=== PATIENT | female | born 1945 | race Caucasian/White ===

== ENCOUNTER → 2023-06-28 11:23 | Outpatient (CLI) | payer MEDICARE, SELFPAY ==
[2023-06-28 12:09] LABS: Basophils # 0.1 K/mm3 (0-0.2); Basophils % 1.1 % (0.1-2.0); Eosinophils # 0.3 K/mm3 (0.0-0.4); Eosinophils % 3.6 % (0.1-12.0); Hematocrit 43.1 % (37.0-47.0); Lymphocytes # 2.4 K/mm3 (0.7-4.5); Mean Corpuscular HGB Conc 32.5 g/dL (31.8-35.4); Mean Corpuscular Hemoglobin 27.7 pg (27.0-31.2); Mean Corpuscular Volume 85.4 fl (81-99); Monocytes # 0.3 K/mm3 (0.1-1.0); Neutrophils % 61.2 % (37.0-80.0); Platelet Count 260 K/mm3 (142-424); Red Blood Count 5.05 M/mm3 (4.20-5.40); Red Cell Distribution Width 15.4 % (11.5-17.5); White Blood Count 8.1 K/mm3 (4.8-10.8)
[2023-06-28 13:56] LABS: Chloride 103 mmol/L (98-107); Potassium 4.1 mmoL/L (3.5-5.1); Sodium 139 mmol/L (136-145)
[2023-06-28 13:58] LABS: Blood Urea Nitrogen 24 mg/dl (7-17); Estimated Glomerular Filt Rate 54 ml/min (>60); GFR (African American) 65 ML/MIN (>60)
[2023-06-28 13:59] LABS: Alanine Aminotransferase 25 U/L (12-78); Albumin Level 4.2 g/dl (3.5-5.0); Alkaline Phosphatase 59 U/L (38-126); Anion Gap 14.1 mEq/L (5-15); Aspartate Amino Transferase 28 U/L (14-36); Bilirubin,Direct 0.3 mg/dl (0.0-0.4); Bilirubin,Total 0.3 mg/dl (0.2-1.3); Calcium 10.7 mg/dl (8.4-10.2); Carbon Dioxide 26 mmol/L (22.0-30.0); Cholesterol 272 mg/dl (140-200); Glucose 133 mg/dl (74-100); Total Protein,Serum 7.2 g/dl (6.3-8.2); Triglycerides 302 mg/dl (30-150); VLDL Cholesterol 60 mg/dL (0-40)
[2023-06-28 14:00] LABS: Chol/HDL Ratio 6.2 (1-3.5); HDL Cholesterol 44 mg/dl (40-60)
[2023-06-28 14:11] LABS: Direct LDL Cholesterol 151.07 mg/dL (100-129)
[2023-06-28 14:28] LABS: Thyroid Stimulating Hormone 6.46 uIU/mL (0.465-4.68)
== END ==
PROVIDERS: PCP Family Medicine; Visit Provider Internal Medicine
DX: E11.9 Type 2 diabetes mellitus without complications (principal); R06.00 Dyspnea, unspecified; E78.5 Hyperlipidemia, unspecified; I10 Essential (primary) hypertension; I25.810 Atherosclerosis of coronary artery bypass graft(s) without angina pectoris; I45.10 Unspecified right bundle-branch block; R94.31 Abnormal electrocardiogram [ECG] [EKG]; I63.9 Cerebral infarction, unspecified; I11.9 Hypertensive heart disease without heart failure; Z79.84 Long term (current) use of oral hypoglycemic drugs
CPT/HCPCS: 36415; 80048; 80061; 80076; 84439; 84443; 85025

== ENCOUNTER → 2023-08-16 08:34 | Outpatient (CLI) | payer MEDICARE, SELFPAY ==
--- NOTE | 2023-08-16 08:39 | CA_ITS ---
FINAL REPORT TECHNIQUE: Grayscale, color Doppler and duplex Doppler ultrasound of the kidneys, aorta and renal arteries was performed. Multiple velocities were measured. CLINICAL HISTORY: HTN,DM COMPARISON: None FINDINGS: Aorta velocity: 116 cm/sec Right kidney: 9.3 cm. No evidence of hydronephrosis or mass. Right intrarenal RI: 0.77 Right renal artery velocity: 229 cm/sec. Right RAR (Renal artery-Aortic Ratio): 1.97 Left Kidney: 10.1 cm. No evidence of hydronephrosis or mass. Left intrarenal RI: 0.8 Left renal artery velocity: 232 cm/sec. Left RAR (Renal Artery-Aortic Ratio): 1.99 0.8 x 1.1 cm hypoechoic focus in the upper pole of the left kidney compatible with a renal cyst. IMPRESSION: No evidence of significant renal artery stenosis. Velocities are increased bilaterally, however the renal artery to aorta ratios are normal bilaterally. CT angiogram or postcontrast MR angiogram would be more sensitive for evaluation of possible renal artery stenosis. Reviewed, Interpreted and Dictated by Donta Garduno III, MD Transcribed by Yuridia Rincon Authenticated and [facility]
--- NOTE | 2023-08-16 09:20 | US_ITS ---
FINAL REPORT TECHNIQUE: Ultrasound images of the kidneys and bladder were obtained. CLINICAL HISTORY: I10 - Essential (primary) hypertension COMPARISON: None FINDINGS: The right kidney measures 9.8 cm in length. It is normal in echogenicity. There is no hydronephrosis. The left kidney measures 9.2 cm in length. It is normal in echogenicity. There is no hydronephrosis. There are 2 small hypoechoic foci in the left kidney, one of which measures 9 mm, the other measures 6 mm in size. These are felt to be compatible with renal cysts. IMPRESSION: 2 small left renal cysts as described. Otherwise unremarkable renal ultrasound. Reviewed, Interpreted and Dictated by Donta Garduno III, MD Transcribed by Yuridia Rincon Authenticated and [facility]
== END ==
LOC: RT 08:35
PROVIDERS: PCP Family Medicine; Visit Provider Nurse Practitioner
DX: I25.810 Atherosclerosis of coronary artery bypass graft(s) without angina pectoris; I45.10 Unspecified right bundle-branch block; R06.83 Snoring; R94.31 Abnormal electrocardiogram [ECG] [EKG]; E78.5 Hyperlipidemia, unspecified; I10 Essential (primary) hypertension
CPT/HCPCS: 76770; 93976

== ENCOUNTER → 2023-09-08 10:06 | Outpatient (CLI) | payer MEDICARE, SELFPAY ==
--- NOTE | 2023-09-08 10:06 | CT_ITS ---
FINAL REPORT TECHNIQUE: Pre-and postcontrast images of the abdomen were performed by computed tomography. Extensive 3-D reconstruction images were performed. A CTA was performed. This study was performed with techniques to keep radiation doses as low as reasonably achievable (ALARA). Individualized dose reduction techniques using automated exposure control or adjustment of mA and/or kV according to the patient''s size were employed. CLINICAL HISTORY: abnl renal u/s FINDINGS: ABDOMEN: The lung bases are clear. Precontrast images demonstrate no evidence of nephrolithiasis. No adrenal masses are identified. The liver, spleen and pancreas are unremarkable. Gallbladder is absent. There is a moderate size hiatal hernia. CTA: The abdominal aorta is proper caliber. The SMA, celiac axis, and JM are patent. There is high-grade, bilateral renal artery stenosis at the origins measuring 80-90%. Dense vascular calcification is noted in the abdominal aorta. IMPRESSION: Dense vascular calcification in the proximal renal arteries bilaterally with high-grade stenosis at the renal artery origins. CTA can overestimate degree of stenosis. Recommend catheter directed angiogram for further evaluation. Reviewed, Interpreted and Dictated by Mario Guthrie MD Transcribed by Heavenly Santoro Authenticated and . [facility]
[2023-09-08 10:42] LABS: Blood Urea Nitrogen 33 mg/dl (7-17); Estimated Glomerular Filt Rate 43 ml/min (>60); GFR (African American) 52 ML/MIN (>60)
== END ==
LOC: RAD 10:06
PROVIDERS: PCP Family Medicine; Visit Provider Internal Medicine
DX: R93.429 Abnormal radiologic findings on diagnostic imaging of unspecified kidney (principal)
CPT/HCPCS: 36415; 74175; 82565; 84520; Q9967

== ENCOUNTER → 2023-09-21 10:01 | Outpatient (CLI) | payer MEDICARE, SELFPAY ==
[2023-09-21 10:49] LABS: Chloride 105 mmol/L (98-107); Sodium 139 mmol/L (136-145)
[2023-09-21 10:50] LABS: Potassium 4.9 mmoL/L (3.5-5.1)
[2023-09-21 10:52] LABS: Blood Urea Nitrogen 39 mg/dl (7-17)
[2023-09-21 10:53] LABS: Anion Gap 18.9 mEq/L (5-15); Carbon Dioxide 20 mmol/L (22.0-30.0); Estimated Glomerular Filt Rate 40 ml/min (>60); GFR (African American) 48 ML/MIN (>60); Glucose 128 mg/dl (74-100)
== END ==
LOC: LAB 10:03
PROVIDERS: PCP Family Medicine; Visit Provider Physician Assistant
DX: E78.5 Hyperlipidemia, unspecified (principal); I11.9 Hypertensive heart disease without heart failure; I25.10 Atherosclerotic heart disease of native coronary artery without angina pectoris; I25.810 Atherosclerosis of coronary artery bypass graft(s) without angina pectoris
CPT/HCPCS: 36415; 80048

== ENCOUNTER 2023-10-23 11:11 | Outpatient (CLI) | payer MEDICARE, SELFPAY ==
[2023-10-23 11:37] LABS: Basophils # 0.1 K/mm3 (0-0.2); Basophils % 1.3 % (0.1-2.0); Eosinophils # 0.5 K/mm3 (0.0-0.4); Eosinophils % 6.4 % (0.1-12.0); Hematocrit 41.5 % (37.0-47.0); Hemoglobin 13.9 g/dL (12.2-16.2); Lymphocytes # 2.4 K/mm3 (0.7-4.5); Lymphocytes % 30.6 % (10-50); Mean Corpuscular HGB Conc 33.4 g/dL (31.8-35.4); Mean Corpuscular Hemoglobin 29.7 pg (27.0-31.2); Mean Corpuscular Volume 88.9 fl (81-99); Mean Platelet Volume 9.6 fl (7.4-10.4); Monocytes # 0.3 K/mm3 (0.1-1.0); Neutrophils # 4.5 K/mm3 (1.8-7.8); Neutrophils % 57.8 % (37.0-80.0); Platelet Count 230 K/mm3 (142-424); Red Blood Count 4.67 M/mm3 (4.20-5.40); Red Cell Distribution Width 16.3 % (11.5-17.5); White Blood Count 7.7 K/mm3 (4.8-10.8)
[2023-10-23 12:04] LABS: Alanine Aminotransferase 23 U/L (12-78); Albumin Level 4.5 g/dl (3.5-5.0); Alkaline Phosphatase 49 U/L (38-126); Anion Gap 16.7 mEq/L (5-15); Aspartate Amino Transferase 26 U/L (14-36); Bilirubin,Direct 0.3 mg/dl (0.0-0.4); Bilirubin,Total 0.3 mg/dl (0.2-1.3); Blood Urea Nitrogen 29 mg/dl (7-17); Calcium 10.9 mg/dl (8.4-10.2); Carbon Dioxide 20 mmol/L (22.0-30.0); Chloride 106 mmol/L (98-107); Chol/HDL Ratio 5.9 (1-3.5); Cholesterol 266 mg/dl (140-200); Estimated Glomerular Filt Rate 43 ml/min (>60); GFR (African American) 52 ML/MIN (>60); Glucose 100 mg/dl (74-100); HDL Cholesterol 45 mg/dl (40-60); Magnesium 1.6 mg/dl (1.6-2.3); Potassium 4.7 mmoL/L (3.5-5.1); Sodium 138 mmol/L (136-145); Triglycerides 260 mg/dl (30-150); VLDL Cholesterol 52 mg/dL (0-40)
[2023-10-23 12:15] LABS: Direct LDL Cholesterol 151.45 mg/dL (100-129)
[2023-10-23 12:19] LABS: Free T4 (Free Thyroxine) 1.04 ng/dl (0.78-2.19)
== END 2023-10-23 23:59 ==
LOC: LAB 11:12
PROVIDERS: PCP Family Medicine; Visit Provider Physician Assistant
DX: E78.5 Hyperlipidemia, unspecified (principal); I10 Essential (primary) hypertension; I25.810 Atherosclerosis of coronary artery bypass graft(s) without angina pectoris; I45.10 Unspecified right bundle-branch block; I70.1 Atherosclerosis of renal artery; R94.31 Abnormal electrocardiogram [ECG] [EKG]; Z79.899 Other long term (current) drug therapy
CPT/HCPCS: 36415; 80048; 80061; 80076; 83735; 84439; 84443; 85025

== ENCOUNTER 2024-01-23 09:40 | Emergency (ER) | payer MEDICARE, SELFPAY ==
[2024-01-23] VITALS (8 sets, daily range): BP systolic 112–197; BP diastolic 50–90; PULSE 44–53; RESP 16–17; TEMP 36.5–37; O2SAT 93–98; BMI 26.5
--- NOTE | 2024-01-23 10:00 | PC.NURSE ---
DR MCCARTY AT BEDSIDE
--- NOTE | 2024-01-23 10:02 | XR_ITS ---
FINAL REPORT CLINICAL HISTORY: L low back simpson rad down L leg/L hip FINDINGS: Left femur Two views were obtained. There is no acute fracture or dislocation. The joint spaces appear normal. No soft tissue abnormality is identified. IMPRESSION: No acute process. Reviewed, Interpreted and Dictated by Kasie Nava MD Transcribed by Huyen Gresham Authenticated and [facility]
--- NOTE | 2024-01-23 10:02 | CT_ITS ---
FINAL REPORT TECHNIQUE: Axial images through the pelvis were performed by computed tomography. Sagittal and coronal reformatted images were obtained and reviewed. This study was performed with techniques to keep radiation doses as low as reasonably achievable (ALARA). Individualized dose reduction techniques using automated exposure control or adjustment of mA and/or kV according to the patient's size were employed. CLINICAL HISTORY: L low back simpson rad down L leg/L hip FINDINGS: The bony pelvis is unremarkable. There are mild degenerative changes of the hips bilaterally. No adenopathy is identified. There is an incidental small nodule in the anterior bladder wall measuring 4 mm. Tiny left inguinal hernia containing fat is identified. IMPRESSION: Unremarkable appearance of the bony pelvis. Incidental nodule of the anterior bladder, cystoscopy may be considered. Reviewed, Interpreted and Dictated by Kasie Nava MD Transcribed by Huyen Gresham Authenticated and [facility]
--- NOTE | 2024-01-23 10:02 | CT_ITS ---
FINAL REPORT CLINICAL HISTORY: back pain rad down L leg, h/o vascular blockages COMPARISON: None FINDINGS: CT ABDOMEN, CT PELVIS, CTA ABDOMEN, CTA PELVIS AND CTA LOWER EXTREMITY RUNOFF Thin section axial CT with IV contrast supplemented with 3D MIP reconstruction under CT Angiogram protocol. CT ANGIOGRAM ABDOMEN AND PELVIS: There is moderate diffuse calcified plaque disease of the aorta. No evidence of aortic stenosis. Moderate bilateral renal artery stenosis, left greater than right. Mesenteric vessels are widely patent. Iliac vessels are widely patent. 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 CTA RIGHT LOWER EXTREMITY: High femoral bifurcation near the inguinal ligament. Continuous femoral-popliteal runoff. No significant stenosis. Mild diffuse plaque disease in the SFA. There is three-vessel runoff of the calf. CTA LEFT LOWER EXTREMITY: High femoral bifurcation near the inguinal ligament. Mild proximal left SFA stenosis up to 40% and distal SFA stenosis of 40 to 50%. Popliteal artery is widely patent. There is three-vessel runoff of the calf. Abdomen: Moderate size hiatal hernia. Mild splenomegaly. Remaining solid abdominal organs are grossly unremarkable. No bowel obstruction is seen. There is no free fluid or free air. Pelvis: Status post hysterectomy. Pelvic bowel loops are unremarkable. No mass or fluid collection is seen. IMPRESSION: No significant aortoiliac inflammatory disease. No significance stenotic lesions right lower extremity runoff. No critical lesions left lower extremity runoff, although there is mild to moderate proximal and distal left SFA stenosis. This study was performed using automated techniques to achieve radiation exposure as low as reasonably achievable Reviewed, Interpreted and Dictated by Kasie Nava MD Transcribed by Bibiana Mckay Authenticated and [facility]
--- NOTE | 2024-01-23 10:02 | XR_ITS ---
FINAL REPORT CLINICAL HISTORY: L low back simpson rad down L leg/L hip FINDINGS: Left hip Three views were obtained. There is no acute fracture or dislocation. The joint spaces appear normal. No soft tissue abnormality is identified. IMPRESSION: No acute process. Reviewed, Interpreted and Dictated by Kasie Nava MD Transcribed by Huyen Gresham Authenticated and [facility]
--- NOTE | 2024-01-23 10:02 | CT_ITS ---
FINAL REPORT TECHNIQUE: Axial images were performed through the lumbar spine by computed tomography. Sagittal reconstruction images were also performed. This study was performed with techniques to keep radiation doses as low as reasonably achievable, (ALARA). Individualized dose reduction techniques using automated exposure control or adjustment of mA and/or kV according to the patient''s size were employed. CLINICAL HISTORY: L low back simpson rad down L leg/L hip FINDINGS: No fracture is identified. There is vacuum disc change with sclerosis at L5-S1. T12-L1: Unremarkable L1-2: Unremarkable L2-3: Mild diffuse disc bulge without canal stenosis. L3-4: Moderate diffuse disc bulge. Mild facet arthropathy and mild central canal stenosis. L4-5: Moderate diffuse disc bulge. Ligamentum flavum hypertrophy with mild central canal stenosis. Mild bilateral neural foraminal narrowing. L5-S1: Bony hypertrophic changes with moderate bilateral neural foraminal narrowing. 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 Reviewed, Interpreted and Dictated by Kasie Nava MD Transcribed by Huyen Gresham Authenticated and [facility]
--- NOTE | 2024-01-23 10:08 | HMH.EDGENADL ---
Discharge Plan Disposition Patient Disposition: Home, Self-Care Condition: Good Prescriptions Prescriptions: New lidocaine [Lidoderm] 5 % adhesive patch,medicated 1 patch topical DAILY Qty: 15 0RF Rx Instructions: leave on most painful area for up to 12 hrs methocarbamol 750 mg tablet 750 mg PO Q8H PRN (Reason: pain) Qty: 20 0RF No Action spironolactone 50 mg tablet 50 mg PO DAILY Qty: 90 3RF omeprazole 20 mg capsule,delayed release(DR/EC) 20 mg PO DAILY hydrochlorothiazide 25 mg tablet 25 mg PO DAILY levothyroxine 25 mcg capsule 25 mcg PO DAILY lisinopril 40 mg tablet 40 mg PO DAILY allopurinol 300 mg tablet 300 mg PO DAILY omega 1-ivz-nge-fish oil [Fish Oil] 300-1,000 mg capsule 1 cap PO DAILY aspirin [Adult Aspirin Regimen] 81 mg tablet,delayed release (DR/EC) 81 mg PO DAILY ezetimibe 10 mg tablet 10 mg PO DAILY glimepiride 4 mg tablet 4 mg PO DAILY isosorbide mononitrate 30 mg tablet extended release 24 hr 30 mg PO DAILY fenofibrate 54 mg tablet 54 mg PO DAILY clonidine HCl 0.1 mg tablet 0.1 mg PO HS calcium carbonate [Calcium 600] 600 mg calcium (1,500 mg) tablet 600 mg PO DAILY hydralazine 100 mg tablet 100 mg PO TID Qty: 90 5RF montelukast 10 mg tablet 10 mg PO DAILY Patient Comments: TAKE ONE TABLET BY MOUTH DAILY carvedilol 25 mg tablet 25 mg PO Q12H Rx Instructions: must administer with a meal/food rosuvastatin 40 mg tablet See Rx Instructions .ROUTE .COMPLEX Qty: 30 11RF Dose Instruction: TAKE ONE TABLET BY MOUTH DAILY Rx Instructions: TAKE ONE TABLET BY MOUTH DAILY Referrals Follow up/Referrals: John Villarreal [Primary Care Provider] - See instructions Activity Restrictions/Add. Instructions Additional Instructions/Restrictions: You were evaluated in the emergency department today. At this time, I feel that your pain is related to musculoskeletal pain either coming from your back or arthritis of your hip. You do have mild distal stenosis of your left superficial femoral artery, but this is not causing any significant occlusion. 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 Return to the emergency department for new or worsening symptoms. Clinical Impressions Clinical Impression: Low back pain radiating to left leg, Hip osteoarthritis, Stenosis of artery of left lower extremity Instructions Patient Instructions: DI for Low Back Pain, DI for Chronic Pain -- Adult Discharge ED Provider: Eliana Carreon General Adult HPI General Chief complaint: PAIN Stated complaint: pain from hips down, no accident Time Seen by Provider: 01/23/24 09:46 Mode of Arrival: Family Vehicle Source of Information: Patient, Relative and Medical Record Limitations: No Limitations Description of Symptoms (Recalled from ER Triage Doc. by RN): Pt c/o bilat hip pain that radiates through her lower extremeties. Reports pain is much worse on her left. States she has not been able to sleep last night d/t the pain. Pt's sister is concerned pt is having blood flow issues to BLE, as she herself delt with similar symptoms. Pt denies any falls, trauma or injuies. States she has been seen at [facility] ER for this and they told her I has bad arthritis in my hips . Pt's sister is asking for blood flow test to be done here. Pt follows Dr. Mckinney at [facility] for Cardiology needs. She takes low dose aspirin. History of Present Illness HPI narrative: This patient is a 78-year-old female with a history of hypertension, CAD status post CABG, hyperlipidemia, renal artery stenosis, right bundle branch block presenting to the emergency department for evaluation with concern for low back pain associated pain that radiates through her bilateral legs. Her left leg is much greater than her right, and she states that the pain is severe. It goes into her groin on the left side. Her sister notes that she has had noncontrasted scans and x-rays and she has been told that it is her arthritis, but she continues to complain of pain no matter the position she has been or how much she limits movement. Her sister notes that she herself has extensive vascular history and had similar symptoms related to vascular occlusions in her legs. Patient has no numbness, tingling, saddle anesthesia, incontinence, or other concerns. She has had no recent falls. Related Data Home Medications Medication Instructions Recorded Confirmed allopurinol 300 mg tablet 300 mg PO DAILY 06/28/23 01/02/24 aspirin 81 mg tablet,delayed 81 mg PO DAILY 06/28/23 01/02/24 release (Adult Aspirin Regimen) calcium carbonate (Calcium 600) 600 mg PO DAILY 06/28/23 01/02/24 clonidine HCl 0.1 mg tablet 0.1 mg PO HS 06/28/23 01/02/24 ezetimibe 10 mg tablet 10 mg PO DAILY 06/28/23 01/02/24 fenofibrate 54 mg tablet 54 mg PO DAILY 06/28/23 01/02/24 glimepiride 4 mg tablet 4 mg PO DAILY 06/28/23 01/02/24 hydrochlorothiazide 25 mg tablet 25 mg PO DAILY 06/28/23 01/02/24 isosorbide mononitrate 30 mg 30 mg PO DAILY 06/28/23 01/02/24 tablet,extended release 24 hr levothyroxine 25 mcg capsule 25 mcg PO DAILY 06/28/23 01/02/24 lisinopril 40 mg tablet 40 mg PO DAILY 06/28/23 01/02/24 omega 5-zdy-xzp-fish oil 300 1 cap PO DAILY 06/28/23 01/02/24 mg-1,000 mg capsule (Fish Oil) omeprazole 20 mg capsule,delayed 20 mg PO DAILY 06/28/23 01/02/24 release carvedilol 25 mg tablet 25 mg PO Q12H 01/02/24 01/02/24 montelukast 10 mg tablet 10 mg PO DAILY 01/02/24 01/02/24 Previous Rx's Medication Instructions Recorded hydralazine 100 mg tablet 100 mg PO TID #90 tabs 07/26/23 spironolactone 50 mg tablet 50 mg PO DAILY #90 tabs 08/16/23 rosuvastatin 40 mg tablet See Rx Instructions .Route 01/15/24 .COMPLEX #30 tabs lidocaine 5 % topical patch 1 patch topical DAILY #15 ea 01/23/24 (Lidoderm) methocarbamol 750 mg tablet 750 mg PO Q8H PRN pain #20 tabs 01/23/24 Allergies Allergy/AdvReac Type Severity Reaction Status Date / Time amlodipine Allergy Unknown Fainting Verified 01/02/24 10:22 [facility] Disclaimer: The information contained in this section may have been updated after the patient was seen, as this information can be updated by other users. Medical History Abnormal CT of the abdomen Renal artery stenosis Social History Smoking Status: Never smoker alcohol intake: never substance use type: denies use current occupational status: retired Travel in the last 8 weeks: Inside the [place] ROS Obtained: Yes All systems reviewed & no additional complaints except as documented Physical Exam General General appearance: alert and in no apparent distress Head Head exam: atraumatic and normocephalic Eye Eye exam: Present normal appearance, PERRL and EOMI ENT ENT exam: Present normal exam, normal oropharynx, mucous membranes moist and normal external ear exam Neck Neck exam: Present normal inspection, full ROM and trachea midline; Absent tenderness Chest Chest inspection: Present normal inspection and symmetric chest wall rise; Absent tenderness Respiratory Respiratory exam: Present normal lung sounds bilaterally; Absent respiratory distress, wheezes, stridor or accessory muscle use Cardiovascular Cardiovascular exam: Present regular rate, normal rhythm and other (Intact pulses in the bilateral lower extremities) Abdominal Exam Abdominal exam: Present soft; Absent distention, tenderness or guarding Extremities Exam Extremities exam: Present full ROM, tenderness (Tenderness to palpation of the posterior left hip) and normal capillary refill; Absent edema, joint swelling or calf tenderness Back Exam Back exam: Present normal inspection and full ROM; Absent tenderness Neurological Exam Neurological exam: Present alert, oriented X3, CN II-XII intact and normal gait; Absent motor sensory deficit Psychiatric Psychiatric exam: Present normal affect and normal mood Skin Skin exam: Present warm and dry Medical Decision Making Medical Records Medical records reviewed: Yes I reviewed the patient's medical records. Neto Inquiry Pt receiving controlled substance: No Vital Signs: 01/23/24 09:41 01/23/24 09:46 01/23/24 10:01 Temperature 97.7 F Temperature Source Oral Pulse Rate 53 L 48 L Pulse Rate [Right] 53 L Respiratory Rate 17 Blood Pressure 169/64 H 171/59 H Blood Pressure [Right Arm] 171/59 H Blood Pressure Mean Blood Pressure Mean [Right Arm] 96 Blood Pressure Source [Right Arm] Automatic Cuff 02 Sat by Pulse Oximetry 98 94 L 93 L Oxygen Delivery Method Room Air 01/23/24 11:31 01/23/24 12:03 01/23/24 12:30 Temperature Temperature Source Pulse Rate 52 L 44 L 45 L Pulse Rate [Right] Respiratory Rate Blood Pressure 112/73 197/50 H Blood Pressure [Right Arm] Blood Pressure Mean 117 Blood Pressure Mean [Right Arm] Blood Pressure Source [Right Arm] 02 Sat by Pulse Oximetry 93 L 93 L 96 Oxygen Delivery Method Room Air 01/23/24 13:02 01/23/24 13:11 Temperature 98.6 F Temperature Source Oral Pulse Rate 47 L 48 L Pulse Rate [Right] Respiratory Rate 16 Blood Pressure 197/50 H 177/90 H Blood Pressure [Right Arm] Blood Pressure Mean Blood Pressure Mean [Right Arm] Blood Pressure Source [Right Arm] 02 Sat by Pulse Oximetry 94 L Oxygen Delivery Method Room Air Lab Data Lab results reviewed: Yes I reviewed the patient's lab results. Lab Results 01/23/24 10:40: WBC 12.6 H, RBC 4.49, Hgb 13.7, Hct 42.0, MCV 93.5, MCH 30.5, MCHC 32.7, RDW 15.1, Plt Count 199, MPV 9.8, Neut % (Auto) 72.1, Lymph % (Auto) 20.8, [place] % (Auto) 3.3, Eos % (Auto) 2.9, Baso % (Auto) 0.9, Neut # (Auto) 9.1 H, Lymph # (Auto) 2.6, [place] # (Auto) 0.4, Eos # (Auto) 0.4, Baso # (Auto) 0.1, PT 10.8, INR 1.00, APTT 28.6, Sodium 136, Potassium 5.4 H, Chloride 106, Carbon Dioxide 23, Anion Gap 12.4, BUN 55 H, Creatinine 1.30 H, Estimated Creat Clear 34, Estimated GFR 40 L, Est GFR ( Amer) 48 L, Glucose 137 H, Calcium 11.4 H, Total Bilirubin 0.5, AST 39 H, ALT 29, Alkaline Phosphatase 48, Total Protein 7.1, Albumin 4.3, Globulin 2.8, Albumin/Globulin Ratio 1.5 01/23/24 10:40 01/23/24 10:40 Orders (Tests/Meds): ED MEDICATIONS Discontinued Medications Generic Name Dose Route Start Last Admin Trade Name Freq PRN Reason Stop Dose Admin Acetaminophen 1,000 mg 01/23/24 10:18 01/23/24 10:25 Acetaminophen 500mg Tab PO 01/23/24 10:19 1,000 mg ONCE ONE Administration Lactated Ringer's 1,000 mls @ 999 mls/hr 01/23/24 11:18 01/23/24 11:26 Lactated Ringer's 1000 Ml Bag IV 01/23/24 12:18 999 mls/hr .Q1H1M ONE Administration Iopamidol 120 ml 01/23/24 11:17 01/23/24 11:19 Iopamidol-370 (76%);100ml Bottle IV 01/23/24 11:18 120 ml ONCE ONE Administration Ketorolac Tromethamine 15 mg 01/23/24 12:57 01/23/24 13:03 Ketorolac 30mg/Ml Vial IV 01/23/24 12:58 15 mg ONCE ONE Administration Lidocaine 1 each 01/23/24 10:18 01/23/24 10:25 Lidocaine 5% Transdermal Patch TP 01/23/24 10:19 1 each ONCE ONE Administration Methocarbamol 500 mg 01/23/24 10:19 01/23/24 10:25 Methocarbamol 500mg Tablet PO 01/23/24 10:20 500 mg ONCE ONE Administration Sodium Chloride 10 ml 01/23/24 11:17 01/23/24 11:19 Sodium Chloride 0.9% 10ml Syr (Rad Only) IV 01/23/24 11:18 10 ml ONCE ONE Administration Sodium Chloride 100 ml 01/23/24 11:17 01/23/24 11:18 0.9 % Sodium Chloride 50 Ml Vial IV 01/23/24 11:18 100 ml ONCE ONE Administration ORDERS Category Date Time Status CT angio abdomen/femoral Stat Cat Scan 01/23/24 10:[address] bony pelvis Stat Cat Scan 01/23/24 10:[address] lumbar spine wo con Stat Cat Scan 01/23/24 10:02 Completed XR femur LT 2V Stat Exams 01/23/24 10:02 Completed XR hip LT 2-3V w/pelvis Stat Exams 01/23/24 10:02 Completed Activated Partial Thrombo Time Stat Lab 01/23/24 10:40 Completed Complete Blood Count Auto Diff Stat Lab 01/23/24 10:40 Completed Comprehensive Metabolic Panel Stat Lab 01/23/24 10:40 Completed Prothrombin Time INR Stat Lab 01/23/24 10:40 Completed Medical Decision Narrative: In summary, this patient is a 78-year-old female presenting to the Emergency Department for evaluation of back pain radiating into her hips and especially down her left leg. Differential diagnoses considered include but are not limited to sciatica, arthritis, lumbar disc herniation, vascular disease. Ruling out the most morbid conditions drove assessment. It should be noted patient's history includes extensive vascular disease which is not at goal therapy. This complicates all aspects of care by increasing patient's risk for morbidity. I reviewed patient's past medical records and noted previous evaluations by cardiology for CAD and hypertension as well as renal artery stenosis, for which she is scheduled for cath on 02/07/2024. On exam, the patient is in no acute distress. She is neurovascularly intact in her bilateral lower extremities with no focal swelling or skin discoloration. I feel her pain is likely related to arthritis/compressed nerves, however her sister remains adamant that she is convinced this vascular disease given the patient's history as well as her own history. Workup included CBC, CMP, PT, PTT, CTA of the abdomen pelvis with runoff, CT lumbar spine, CT bony pelvis, and x-rays of the left hip, pelvis, and femur. Patient was given oral Tylenol, Robaxin, and a topical Lidoderm patch for symptomatic improvement. I independently interpreted CT and x-ray prior to the radiologist read and noted no acute fracture and no obvious acute occlusion. Please see their read for final interpretation. Labs were obtained that demonstrated very mild leukocytosis at 12.6. Patient also has very mild hyperkalemia. Creatinine is around the patient's baseline. She was given a bolus of IV fluids for the IV contrast she received for scan. On reassessment, patient had some improvement after administration of as above. She remains neurovascularly intact. She does have mild stenosis of the left SFA, which I notified her of. She was given a dose of IM steroids to help with pain, which I presume is related to arthritis versus disc herniation with nerve compression. Patient is ambulatory throughout the emergency department without difficulty. At this time, patient was deemed to be appropriate for discharge home with close outpatient follow-up with her primary care provider. She was given prescriptions for Lidoderm patches as well as Robaxin. Strict return precautions were given, and the patient was discharged after all questions were answered. Critical Care Critical Care Time Critical Care Time: No
[2024-01-23] MEDS: LIDOCAINE 5% TRANSDERMAL PATCH 1 EACH TP (10:25)
[2024-01-23] MEDS: METHOCARBAMOL 500MG TABLET 500 MG PO (10:25)
[2024-01-23] MEDS: ACETAMINOPHEN 500MG TAB 1000 MG PO (10:25)
[2024-01-23 10:47] LABS: Basophils # 0.1 K/mm3 (0-0.2); Basophils % 0.9 % (0.1-2.0); Eosinophils # 0.4 K/mm3 (0.0-0.4); Eosinophils % 2.9 % (0.1-12.0); Hemoglobin 13.7 g/dL (12.2-16.2); Lymphocytes # 2.6 K/mm3 (0.7-4.5); Lymphocytes % 20.8 % (10-50); Mean Corpuscular HGB Conc 32.7 g/dL (31.8-35.4); Mean Corpuscular Hemoglobin 30.5 pg (27.0-31.2); Mean Corpuscular Volume 93.5 fl (81-99); Mean Platelet Volume 9.8 fl (7.4-10.4); Monocytes # 0.4 K/mm3 (0.1-1.0); Monocytes % 3.3 % (1.7-9.3); Neutrophils # 9.1 K/mm3 (1.8-7.8); Neutrophils % 72.1 % (37.0-80.0); Platelet Count 199 K/mm3 (142-424); Red Blood Count 4.49 M/mm3 (4.20-5.40); Red Cell Distribution Width 15.1 % (11.5-17.5); White Blood Count 12.6 K/mm3 (4.8-10.8)
[2024-01-23 10:56] LABS: Chloride 106 mmol/L (98-107); Potassium 5.4 mmoL/L (3.5-5.1); Sodium 136 mmol/L (136-145)
[2024-01-23 10:58] LABS: Alanine Aminotransferase 29 U/L (12-78); Blood Urea Nitrogen 55 mg/dl (7-17); Creatinine Clearance Estimated 34 mL/min (50-200); Estimated Glomerular Filt Rate 40 ml/min (>60); GFR (African American) 48 ML/MIN (>60)
[2024-01-23 10:59] LABS: Albumin Level 4.3 g/dl (3.5-5.0); Albumin/Globulin Ratio 1.5 (1.1-1.8); Alkaline Phosphatase 48 U/L (38-126); Anion Gap 12.4 mEq/L (5-15); Aspartate Amino Transferase 39 U/L (14-36); Bilirubin,Total 0.5 mg/dl (0.2-1.3); Calcium 11.4 mg/dl (8.4-10.2); Carbon Dioxide 23 mmol/L (22.0-30.0); Globulin 2.8 g/dL (1.3-3.2); Glucose 137 mg/dl (74-100); Total Protein,Serum 7.1 g/dl (6.3-8.2)
--- NOTE | 2024-01-23 10:59 | PC.NURSE ---
Pt gone to RAD via wheelchair
[2024-01-23 11:00] LABS: Activated Partial Thrombo Time 28.6 seconds (22.8-30.6); Prothrombin Time 10.8 seconds (10.1-12.5)
[2024-01-23] MEDS: 0.9 % SODIUM CHLORIDE 50 ML VIAL 100 ML IV (11:18)
[2024-01-23] MEDS: IOPAMIDOL-370 (76%);100ML BOTTLE 120 ML IV (11:19)
[2024-01-23] MEDS: SODIUM CHLORIDE 0.9% 10ML SYR (RAD ONLY) 10 ML IV (11:19)
--- NOTE | 2024-01-23 11:19 | PC.NURSE ---
pt returned from radiology
--- NOTE | 2024-01-23 11:21 | PC.NURSE ---
pt returned from radiology
[2024-01-23] MEDS: LACTATED RINGERS 1000ML 1,000 ML 999 ML IV (11:26)
[2024-01-23] MEDS: KETOROLAC 30MG/ML VIAL 15 MG IV (13:03)
== END 2024-01-23 13:29 | disposition home or self-care (01) ==
PROVIDERS: Emergency Provider Emergency Medicine; PCP Family Medicine
DX: M25.552 Pain in left hip (principal); M25.551 Pain in right hip; I70.202 Unspecified atherosclerosis of native arteries of extremities, left leg; M54.59 Other low back pain; M79.605 Pain in left leg; M16.0 Bilateral primary osteoarthritis of hip; E87.5 Hyperkalemia; E78.5 Hyperlipidemia, unspecified; I11.9 Hypertensive heart disease without heart failure; I25.10 Atherosclerotic heart disease of native coronary artery without angina pectoris; Z95.1 Presence of aortocoronary bypass graft
CPT/HCPCS: 72131; 72192; 73502; 73552; 75635; 80053; 85025; 85610; 85730; 96361; 96374; 99285; Q9967

== ENCOUNTER 2024-04-30 11:00 | Outpatient (CLI) | payer MEDICARE, SELFPAY ==
[2024-04-30 11:30] LABS: Basophils # 0.1 K/mm3 (0-0.2); Eosinophils # 0.2 K/mm3 (0.0-0.4); Eosinophils % 2.3 % (0.1-12.0); Hematocrit 40.1 % (37.0-47.0); Hemoglobin 12.9 g/dL (12.2-16.2); Lymphocytes # 1.9 K/mm3 (0.7-4.5); Lymphocytes % 27.4 % (10-50); Mean Corpuscular HGB Conc 32.2 g/dL (31.8-35.4); Mean Corpuscular Hemoglobin 31.1 pg (27.0-31.2); Mean Corpuscular Volume 96.8 fl (81-99); Mean Platelet Volume 9.2 fl (7.4-10.4); Monocytes # 0.3 K/mm3 (0.1-1.0); Monocytes % 4.1 % (1.7-9.3); Neutrophils # 4.6 K/mm3 (1.8-7.8); Neutrophils % 65.3 % (37.0-80.0); Platelet Count 207 K/mm3 (142-424); Red Blood Count 4.14 M/mm3 (4.20-5.40); Red Cell Distribution Width 15.2 % (11.5-17.5)
[2024-04-30 12:28] LABS: Alanine Aminotransferase 26 U/L (12-78); Albumin Level 3.9 g/dl (3.5-5.0); Alkaline Phosphatase 42 U/L (38-126); Anion Gap 13.3 mEq/L (5-15); Aspartate Amino Transferase 29 U/L (14-36); Bilirubin,Indirect 0.6 mg/dL (0.0-0.9); Bilirubin,Total 0.6 mg/dl (0.2-1.3); Bilirubin,Unconjugated 0.5 mg/dL (0.0-1.1); Blood Urea Nitrogen 31 mg/dl (7-17); Calcium 10.8 mg/dl (8.4-10.2); Carbon Dioxide 20 mmol/L (22.0-30.0); Chloride 110 mmol/L (98-107); Chol/HDL Ratio 2.5 (1-3.5); Cholesterol 143 mg/dl (140-200); Estimated Glomerular Filt Rate 43 ml/min (>60); GFR (African American) 52 ML/MIN (>60); Glucose 127 mg/dl (74-100); HDL Cholesterol 57 mg/dl (40-60); Magnesium 1.2 mg/dl (1.6-2.3); Potassium 5.3 mmoL/L (3.5-5.1); Sodium 138 mmol/L (136-145); Total Protein,Serum 6.5 g/dl (6.3-8.2); Triglycerides 134 mg/dl (30-150); VLDL Cholesterol 27 mg/dL (0-40)
[2024-04-30 12:39] LABS: Direct LDL Cholesterol 61.33 mg/dL (100-129)
[2024-04-30 12:45] LABS: Free T4 (Free Thyroxine) 1.33 ng/dl (0.78-2.19)
== END 2024-04-30 23:59 | disposition home or self-care (01) ==
LOC: LAB 11:02
PROVIDERS: PCP Family Medicine; Visit Provider Nurse Practitioner Family
DX: I70.1 Atherosclerosis of renal artery (principal); I11.9 Hypertensive heart disease without heart failure; I25.10 Atherosclerotic heart disease of native coronary artery without angina pectoris; I25.810 Atherosclerosis of coronary artery bypass graft(s) without angina pectoris; E78.5 Hyperlipidemia, unspecified; R94.31 Abnormal electrocardiogram [ECG] [EKG]
CPT/HCPCS: 36415; 80048; 80061; 80076; 83735; 84439; 84443; 85025

== ENCOUNTER 2024-05-16 12:29 | Observation (INO) | payer MEDICARE, SELFPAY ==
[2024-05-16] VITALS (56 sets, daily range): BP systolic 118–189; BP diastolic 41–100; PULSE 56–85; RESP 16–20; TEMP 36.6–37.1; O2SAT 90–97; BMI 25.4; BMI 26.4
--- NOTE | 2024-05-16 07:05 | IR_ITS ---
APPROVED REPORT Patient Location: Outpatient Strategic Marketing Leader: MARCUS Lundberg RT (R) PROCEDURES Right renal artery selective angiogram Left renal artery selective angiogram Bare-metal stent deployment to the ostial left renal artery INDICATION Known renal artery stenosis, Abnormal CTA of the renal arteries, Chronic renal failure creatinine 1.3, Renovascular hypertension, Renal artery stenosis Informed consent was obtained prior to the procedure. COMPLICATIONS None Estimated Blood Loss: Less than 10 mls TECHNIQUE 1% lidocaine used to anesthetize the right femoral groin. The right femoral artery was accessed via the Seldinger technique. A 4 Japanese sheath was placed in the right femoral artery. The JR4 catheter was used to selectively intubate each renal artery. At the end the diagnostic angiogram therapeutic Was administered giving a therapeutic ACT and the 4 Japanese sheath was exchanged for a 6 Japanese sheath. The short LAUREN guide catheter was placed in the left renal artery followed by a BMW wire. A 6 mm x 18 mm Herculink stent was deployed in the ostial proximal segment of the left renal artery at 14 steven reducing the stenosis to 0%. There was significant poststenotic dilatation therefore the stent was not upsized to accommodate the poststenotic dilatation. After achieving excellent angiograph results the apparatus was removed the patient was transferred to the postop putting in stable addition for sheath removal ANGIOGRAPHIC RESULTS Right renal artery singular and has an ostial calcified 30% stenosis Left renal artery singular and has an ostial calcified concentric 80 to 90% stenosis IMPRESSION Mild right renal artery stenosis Severe left renal artery stenosis Severe right renal artery stenosis causing renovascular hypertension with successful stenting reducing lesion to 0% with 1 bare-metal stent PLAN 1. Admit patient overnight and monitor for blood pressure control. A manual sheath removal is required and patient is susceptible to blood pressure fluctuations 2. Dual antiplatelet therapy for 1 month Electronically signed by : Gary Sosa MD 05/16/2024 12:19:32
[2024-05-16 08:42] LABS: Basophils # 0.1 K/mm3 (0-0.2); Basophils % 0.8 % (0.1-2.0); Eosinophils # 0.2 K/mm3 (0.0-0.4); Eosinophils % 1.8 % (0.1-12.0); Hematocrit 41.3 % (37.0-47.0); Hemoglobin 13.4 g/dL (12.2-16.2); Lymphocytes # 2.4 K/mm3 (0.7-4.5); Lymphocytes % 20.6 % (10-50); Mean Corpuscular HGB Conc 32.4 g/dL (31.8-35.4); Mean Corpuscular Hemoglobin 30.7 pg (27.0-31.2); Mean Corpuscular Volume 94.9 fl (81-99); Mean Platelet Volume 9.3 fl (7.4-10.4); Monocytes # 0.4 K/mm3 (0.1-1.0); Monocytes % 3.5 % (1.7-9.3); Neutrophils # 8.5 K/mm3 (1.8-7.8); Neutrophils % 73.2 % (37.0-80.0); Platelet Count 242 K/mm3 (142-424); Red Blood Count 4.35 M/mm3 (4.20-5.40); Red Cell Distribution Width 15.3 % (11.5-17.5); White Blood Count 11.6 K/mm3 (4.8-10.8)
[2024-05-16 08:50] LABS: Chloride 107 mmol/L (98-107); Sodium 137 mmol/L (136-145)
[2024-05-16 08:51] LABS: Potassium 4.7 mmoL/L (3.5-5.1)
[2024-05-16 08:53] LABS: Blood Urea Nitrogen 36 mg/dl (7-17); Creatinine Clearance Estimated 33 mL/min (50-200); Estimated Glomerular Filt Rate 40 ml/min (>60); GFR (African American) 48 ML/MIN (>60)
[2024-05-16 08:54] LABS: Anion Gap 10.7 mEq/L (5-15); Calcium 10.7 mg/dl (8.4-10.2); Carbon Dioxide 24 mmol/L (22.0-30.0); Glucose 143 mg/dl (74-100)
[2024-05-16] MEDS: diphenhydrAMINE 50MG/ML VIAL 50 MG IV (10:16)
[2024-05-16] MEDS: MIDAZOLAM 2MG/2ML VIAL 1 MG IV (10:17)
[2024-05-16] MEDS: LIDOCAINE 1% 10ML MDV 20 ML IJ (10:17)
[2024-05-16] MEDS: FENTANYL 100MCG/2ML VIAL 50 MCG IV (10:17)
[2024-05-16] MEDS: CLOPIDOGREL 300MG TABLET 300 MG PO (10:45)
[2024-05-16] MEDS: PROTAMINE SULFATE 50MG/5ML VIAL (CATH LAB) 50 MG IV (11:31)
[2024-05-16] MEDS: HEPARIN 1,000 UNITS/500ML NS (CATH LAB) 3000 UNIT IV (11:34)
[2024-05-16] MEDS: 0.9 % SODIUM CHLORIDE 500 ML 25 ML IV (11:35)
[2024-05-16] MEDS: HEPARIN 1,000 UNITS/ML 10ML VIAL (CATH LAB) 10000 UNIT IV (11:35)
[2024-05-16] MEDS: HYDRALAZINE 20MG/ML VIAL 20 MG IV (12:20)
[2024-05-16] MEDS: MORPHINE 4MG/ML SYRINGE 4 MG IV (12:24)
[2024-05-16] MEDS: IOPAMIDOL-370 (76%);100ML BOTTLE 30 ML IV (12:54)
--- NOTE | 2024-05-16 14:47 | HMH.PHAINT1 ---
Pharmacy Intervention Comments: HOME MEDICATION LIST VERIFIED USING LIST FROM OUTPATIENT PHARMACY
--- NOTE | 2024-05-16 15:57 | EXP.HP ---
History of Present Illness *Admission Date: 05/16/24 *Reason for visit:: Status post right renal artery stenosis stent placement *History of present illness: Really nice patient with past medical history of diabetes, hypothyroidism, CAD, hypertension, renal artery stenosis. Patient presents status post renal artery stenosis stent placement for blood pressure monitoring. Patient sister present at bedside at time evaluation by Dr. Krishnan. Denies chest pain, fevers, chills, shortness of breath, nausea, vomiting, abdominal pain. Patient does admit to some discomfort at right femoral angiogram site [facility] Disclaimer: The information contained in this section may have been updated after the patient was seen, as this information can be updated by other users. Medical History (Updated 05/16/24 @ 14:14 by Whitley Friedman RN) History of renal angiogram CKD (chronic kidney disease) Diabetes mellitus type 2 in nonobese Hyperkalemia Hypomagnesemia Abnormal CT of the abdomen Renal artery stenosis Surgical History (Updated 05/16/24 @ 14:14 by Whitley Friedman RN) Hx of CABG Family History (Updated 05/16/24 @ 14:14 by Whitley Friedman RN) Other Family history unobtainable Social History (Updated 05/16/24 @ 14:14 by Whitley Friedman RN) Smoking Status: Never smoker alcohol intake: never substance use type: denies use current occupational status: retired Travel in the last 8 weeks: Inside the [place] Review of Systems Review of Systems Review of systems:: pertinent systems reviewed and negative unless documented below Constitutional Constitutional: Reports system reviewed and no additional complaints, except as documented Meds Home Medications and Allergies Home Medications ?Medication ?Instructions ?Recorded ?Confirmed ?Type allopurinol 300 mg tablet 300 mg PO DAILY 06/28/23 05/16/24 History aspirin 81 mg tablet,delayed 81 mg PO DAILY 06/28/23 05/16/24 History release (Adult Aspirin Regimen) calcium carbonate (Calcium 600) 600 mg PO DAILY 06/28/23 05/16/24 History clonidine HCl 0.1 mg tablet 0.1 mg PO HS 06/28/23 05/16/24 History ezetimibe 10 mg tablet 10 mg PO DAILY 06/28/23 05/16/24 History fenofibrate 54 mg tablet 54 mg PO DAILY 06/28/23 05/16/24 History glimepiride 4 mg tablet 4 mg PO DAILY 06/28/23 05/16/24 History hydrochlorothiazide 25 mg tablet 25 mg PO DAILY 06/28/23 05/16/24 History lisinopril 40 mg tablet 40 mg PO DAILY 06/28/23 05/16/24 History omega 9-rtf-gjy-fish oil 300 1 cap PO DAILY 06/28/23 05/16/24 History mg-1,000 mg capsule (Fish Oil) omeprazole 20 mg capsule,delayed 20 mg PO DAILY 06/28/23 05/16/24 History release montelukast 10 mg tablet 10 mg PO PM 01/02/24 05/16/24 History lidocaine 5 % topical patch 1 patch topical DAILY #15 ea 01/23/24 05/16/24 Rx (Lidoderm) magnesium oxide 400 mg (241.3 mg 400 mg PO BID #180 tabs 05/01/24 05/16/24 Rx magnesium) tablet carvedilol 6.25 mg tablet 6.25 mg PO BID 05/16/24 05/16/24 History clopidogrel 75 mg tablet (Plavix) 75 mg PO DAILY 30 days #30 tabs 05/16/24 Rx hydralazine 50 mg tablet 50 mg PO BID 05/16/24 05/16/24 History levothyroxine 50 mcg tablet 50 mcg PO DAILY 05/16/24 05/16/24 History rosuvastatin 40 mg tablet 40 mg PO HS 05/16/24 05/16/24 History spironolactone 50 mg tablet 50 mg PO DAILY 05/16/24 05/16/24 History New Prescriptions to Start Prescriptions: clopidogrel [Plavix] Gary Sosa Allergies Allergy/AdvReac Type Severity Reaction Status Date / Time amlodipine Allergy Unknown Fainting Verified 04/30/24 10:02 Exam Data for Last 24 hours Vital signs and Labs for Last 24 Hours: Temp Pulse Resp BP Pulse Ox O2 Del Method 98 F 62 20 139/68 93 L Room Air 05/16/24 10:46 05/16/24 13:05 05/16/24 13:05 05/16/24 13:05 05/16/24 13:05 05/16/24 12:40 Laboratory Results - last 24 hr 05/16/24 08:30: WBC 11.6 H, RBC 4.35, Hgb 13.4, Hct 41.3, MCV 94.9, MCH 30.7, MCHC 32.4, RDW 15.3, Plt Count 242, MPV 9.3, Neut % (Auto) 73.2, Lymph % (Auto) 20.6, [place] % (Auto) 3.5, Eos % (Auto) 1.8, Baso % (Auto) 0.8, Neut # (Auto) 8.5 H, Lymph # (Auto) 2.4, [place] # (Auto) 0.4, Eos # (Auto) 0.2, Baso # (Auto) 0.1, Sodium 137, Potassium 4.7, Chloride 107, Carbon Dioxide 24, Anion Gap 10.7, BUN 36 H, Creatinine 1.30 H, Estimated Creat Clear 33, Estimated GFR 40 L, Est GFR ( Amer) 48 L, Glucose 143 H, Calcium 10.7 H I & O for Last 24 hours: Intake & Output 05/13/24 05/14/24 05/15/24 05/16/24 23:59 23:59 23:59 23:59 Weight 58.967 kg Constitutional Constitutional: no acute distress *Routine HEENT Exam Head: Present normocephalic Eye: Present EOMI and normal accommodation ENT: Present mucous membranes moist *Routine Neck Exam Neck: Present supple and full ROM *Routine Respiratory Exam Respiratory: Present CTA bilaterally *Routine Cardiovascular Exam Cardiovascular: Present RRR, Normal S1 and Normal S2 *Routine Abdominal Exam Abdominal: Present soft and normoactive bowel sounds *Routine Rectal Exam Rectal:: deferred *Routine Genitalia Exam Genitalia:: deferred *Routine Extremities Exam Extremities: Present full ROM and normal capillary refill Comments: Right groin incision dressing C/D/I *Routine Skin Exam Skin: Present intact Assessment and Plan *Assessment and plan (1) Renal artery stenosis: Status: Acute Category: Medical Code(s): I70.1 - Atherosclerosis of renal artery (2) Hypertension: Status: Acute Qualifiers: Hypertension type: renovascular hypertension Qualified Code(s): I15.0 - Renovascular hypertension Category: Medical Code(s): I10 - Essential (primary) hypertension (3) Hyperlipidemia: Status: Acute Qualifiers: Hyperlipidemia type: unspecified Qualified Code(s): E78.5 - Hyperlipidemia, unspecified Category: Medical Code(s): E78.5 - Hyperlipidemia, unspecified Plan Status post renal artery stent placement: ? As needed pain meds, admit for routine perioperative care. Diabetes: Sign scale insulin, ACHS Accu-Cheks, restart home medications Hypertension: Restart all home medications except hydrochlorothiazide. As needed IV hydralazine/labetalol Hypothyroidism: Continue home medications CODE STATUS: Full PPx: SCDs FEN: Diabetic diet
[2024-05-16 16:29] LABS: POC Glucose,Bedside 57 (70-110)
[2024-05-16 17:11] LABS: POC Glucose,Bedside 67 (70-110)
[2024-05-16 18:01] LABS: POC Glucose,Bedside 175 (70-110)
[2024-05-16 20:38] LABS: POC Glucose,Bedside 232 (70-110)
[2024-05-16] MEDS: ATORVASTATIN 40MG TABLET 40 MG PO (20:38)
[2024-05-16] MEDS: CARVEDILOL 6.25MG TABLET 6.25 MG PO (20:38)
[2024-05-16] MEDS: HYDRALAZINE HCL 25MG TABLET 50 MG PO (20:38)
[2024-05-16] MEDS: PANTOPRAZOLE 40MG TABLET 40 MG PO (20:39)
[2024-05-16] MEDS: MAGNESIUM OXIDE 400MG TABLET 400 MG PO (20:39)
[2024-05-17] VITALS: PULSE 60
[2024-05-17 04:00] VITALS: BP 121/63; PULSE 60; PULSE 69; RESP 18; TEMP 36.8; O2SAT 96; BMI 26.2
[2024-05-17] MEDS: GLIMEPIRIDE 2 MG TABLET 4 MG PO (06:04)
[2024-05-17] MEDS: LEVOTHYROXINE 50MCG (0.05MG) TAB 50 MCG PO (06:04)
[2024-05-17 06:06] LABS: POC Glucose,Bedside 122 (70-110)
[2024-05-17 06:46] LABS: Albumin Level 3.7 g/dl (3.5-5.0); Basophils # 0.1 K/mm3 (0-0.2); Basophils % 0.7 % (0.1-2.0); Chloride 107 mmol/L (98-107); Eosinophils # 0.1 K/mm3 (0.0-0.4); Eosinophils % 1.7 % (0.1-12.0); Hematocrit 37.4 % (37.0-47.0); Hemoglobin 12.1 g/dL (12.2-16.2); Lymphocytes # 1.9 K/mm3 (0.7-4.5); Mean Corpuscular HGB Conc 32.3 g/dL (31.8-35.4); Mean Corpuscular Hemoglobin 30.9 pg (27.0-31.2); Mean Corpuscular Volume 95.7 fl (81-99); Mean Platelet Volume 9.2 fl (7.4-10.4); Monocytes # 0.3 K/mm3 (0.1-1.0); Monocytes % 4.2 % (1.7-9.3); Neutrophils # 5.5 K/mm3 (1.8-7.8); Neutrophils % 69.4 % (37.0-80.0); Platelet Count 207 K/mm3 (142-424); Potassium 4.7 mmoL/L (3.5-5.1); Red Blood Count 3.91 M/mm3 (4.20-5.40); Red Cell Distribution Width 15.1 % (11.5-17.5); Sodium 134 mmol/L (136-145); White Blood Count 7.9 K/mm3 (4.8-10.8)
[2024-05-17 06:49] LABS: Alanine Aminotransferase 21 U/L (12-78); Albumin/Globulin Ratio 1.5 (1.1-1.8); Alkaline Phosphatase 39 U/L (38-126); Anion Gap 9.7 mEq/L (5-15); Aspartate Amino Transferase 25 U/L (14-36); Bilirubin,Total 0.5 mg/dl (0.2-1.3); Blood Urea Nitrogen 29 mg/dl (7-17); Carbon Dioxide 22 mmol/L (22.0-30.0); Creatinine Clearance Estimated 40 mL/min (50-200); Estimated Glomerular Filt Rate 48 ml/min (>60); GFR (African American) 58 ML/MIN (>60); Globulin 2.5 g/dL (1.3-3.2); Glucose 120 mg/dl (74-100); Total Protein,Serum 6.2 g/dl (6.3-8.2)
[2024-05-17 08:00] VITALS: BP 144/75; PULSE 69; PULSE 70; RESP 16; TEMP 36.6; O2SAT 95
[2024-05-17] MEDS: EZETIMIBE 10MG TABLET 10 MG PO (08:16)
[2024-05-17] MEDS: SPIRONOLACTONE 25MG TABLET 50 MG PO (08:16)
[2024-05-17] MEDS: MAGNESIUM OXIDE 400MG TABLET 400 MG PO (08:16)
[2024-05-17] MEDS: ALLOPURINOL 300MG TABLET 300 MG PO (08:16)
[2024-05-17] MEDS: CARVEDILOL 6.25MG TABLET 6.25 MG PO (08:16)
[2024-05-17] MEDS: FENOFIBRATE 54MG TABLET 54 MG PO (08:16)
[2024-05-17] MEDS: LISINOPRIL 20MG TABLET 40 MG PO (08:16)
[2024-05-17] MEDS: HYDRALAZINE HCL 25MG TABLET 50 MG PO (08:17)
[2024-05-17 08:26] LABS: Magnesium 1.4 mg/dl (1.6-2.3)
--- NOTE | 2024-05-17 08:27 | P.DS_ITS ---
General Admission date:: 05/16/24 Discharge date: 05/17/24 HPI HPI HPI: Really nice patient with past medical history of diabetes, hypothyroidism, CAD, hypertension, renal artery stenosis. Patient presents status post renal artery stenosis stent placement for blood pressure monitoring. Patient sister present at bedside at time evaluation by Dr. Krishnan. Denies chest pain, fevers, chills, shortness of breath, nausea, vomiting, abdominal pain. Patient does admit to some discomfort at right femoral angiogram site Hospital Course Hospital Course Hospital Course: Patient admitted to hospital after renal artery stenosis stent placement for pressure monitoring. Patient's blood pressure remained normal throughout hospitalization. Patient discharged from hospital with instructions to follow-up with both cardiology and primary care physician for further blood pressure monitoring after hospital discharge. Exam Data for Last 24 hours Vital signs and Labs for Last 24 Hours: Temp Pulse Resp BP Pulse Ox O2 Del Method 98 F 69 16 144/75 H 95 Room Air 05/17/24 08:00 05/17/24 08:00 05/17/24 08:00 05/17/24 08:00 05/17/24 08:00 05/17/24 06:37 Laboratory Results - last 24 hr 05/16/24 08:30: WBC 11.6 H, RBC 4.35, Hgb 13.4, Hct 41.3, MCV 94.9, MCH 30.7, MCHC 32.4, RDW 15.3, Plt Count 242, MPV 9.3, Neut % (Auto) 73.2, Lymph % (Auto) 20.6, [place] % (Auto) 3.5, Eos % (Auto) 1.8, Baso % (Auto) 0.8, Neut # (Auto) 8.5 H, Lymph # (Auto) 2.4, [place] # (Auto) 0.4, Eos # (Auto) 0.2, Baso # (Auto) 0.1, Sodium 137, Potassium 4.7, Chloride 107, Carbon Dioxide 24, Anion Gap 10.7, BUN 36 H, Creatinine 1.30 H, Estimated Creat Clear 33, Estimated GFR 40 L, Est GFR ( Amer) 48 L, Glucose 143 H, Calcium 10.7 H 05/16/24 16:23: POC Glucose 57 L 05/16/24 17:03: POC Glucose 67 L 05/16/24 17:50: POC Glucose 175 H 05/16/24 20:15: POC Glucose 232 H 05/17/24 05:41: POC Glucose 122 H 05/17/24 06:23: WBC 7.9 D, RBC 3.91 L, Hgb 12.1 L, Hct 37.4, MCV 95.7, MCH 30.9, MCHC 32.3, RDW 15.1, Plt Count 207, MPV 9.2, Neut % (Auto) 69.4, Lymph % (Auto) 24.0, [place] % (Auto) 4.2, Eos % (Auto) 1.7, Baso % (Auto) 0.7, Neut # (Auto) 5.5, Lymph # (Auto) 1.9, [place] # (Auto) 0.3, Eos # (Auto) 0.1, Baso # (Auto) 0.1, Sodium 134 L, Potassium 4.7, Chloride 107, Carbon Dioxide 22, Anion Gap 9.7, BUN 29 H, Creatinine 1.10 H, Estimated Creat Clear 40, Estimated GFR 48 L, Est GFR ( Amer) 58 L D, Glucose 120 H, Calcium 10.0, Total Bilirubin 0.5, AST 25, ALT 21, Alkaline Phosphatase 39, Total Protein 6.2 L, Albumin 3.7, Globulin 2.5, Albumin/Globulin Ratio 1.5 I & O for Last 24 hours: Intake & Output 05/14/24 05/15/24 05/16/24 05/17/24 23:59 23:59 23:59 23:59 Intake Total 360 / 610 250 / 250 Output Total 250 / 250 Balance 110 / 360 250 / 250 Weight 61.348 kg 60.464 kg *Routine HEENT Exam Head: Present normocephalic Eye: Present EOMI and normal accommodation ENT: Present mucous membranes moist *Routine Neck Exam Neck: Present supple and full ROM *Routine Respiratory Exam Respiratory: Present CTA bilaterally *Routine Cardiovascular Exam Cardiovascular: Present RRR, Normal S1 and Normal S2 *Routine Abdominal Exam Abdominal: Present soft and normoactive bowel sounds *Routine Extremities Exam Extremities: Present full ROM and normal capillary refill *Routine Skin Exam Skin: Present intact *Routine Neurological Exam Neurological: Present alert and oriented X3 Results Data Completed and Pending Labs on day of discharge: Labs from last 24 hours 05/17/24 05/17/24 05/16/24 06:23 05:41 20:15 WBC 7.9 D RBC 3.91 L Hgb 12.1 L Hct 37.4 MCV 95.7 MCH 30.9 MCHC 32.3 RDW 15.1 Plt Count 207 MPV 9.2 Neut % (Auto) 69.4 Lymph % (Auto) 24.0 [place] % (Auto) 4.2 Eos % (Auto) 1.7 Baso % (Auto) 0.7 Neut # (Auto) 5.5 Lymph # (Auto) 1.9 [place] # (Auto) 0.3 Eos # (Auto) 0.1 Baso # (Auto) 0.1 Sodium 134 L Potassium 4.7 Chloride 107 Carbon Dioxide 22 Anion Gap 9.7 BUN 29 H Creatinine 1.10 H Estimated Creat Clear 40 Estimated GFR 48 L Est GFR ( Amer) 58 L D Glucose 120 H POC Glucose 122 H 232 H Calcium 10.0 Total Bilirubin 0.5 AST 25 ALT 21 Alkaline Phosphatase 39 Total Protein 6.2 L Albumin 3.7 Globulin 2.5 Albumin/Globulin Ratio 1.5 05/16/24 05/16/24 05/16/24 17:50 17:03 16:23 WBC RBC Hgb Hct MCV MCH MCHC RDW Plt Count MPV Neut % (Auto) Lymph % (Auto) [place] % (Auto) Eos % (Auto) Baso % (Auto) Neut # (Auto) Lymph # (Auto) [place] # (Auto) Eos # (Auto) Baso # (Auto) Sodium Potassium Chloride Carbon Dioxide Anion Gap BUN Creatinine Estimated Creat Clear Estimated GFR Est GFR ( Amer) Glucose POC Glucose 175 H 67 L 57 L Calcium Total Bilirubin AST ALT Alkaline Phosphatase Total Protein Albumin Globulin Albumin/Globulin Ratio 05/16/24 08:30 WBC 11.6 H RBC 4.35 Hgb 13.4 Hct 41.3 MCV 94.9 MCH 30.7 MCHC 32.4 RDW 15.3 Plt Count 242 MPV 9.3 Neut % (Auto) 73.2 Lymph % (Auto) 20.6 [place] % (Auto) 3.5 Eos % (Auto) 1.8 Baso % (Auto) 0.8 Neut # (Auto) 8.5 H Lymph # (Auto) 2.4 [place] # (Auto) 0.4 Eos # (Auto) 0.2 Baso # (Auto) 0.1 Sodium 137 Potassium 4.7 Chloride 107 Carbon Dioxide 24 Anion Gap 10.7 BUN 36 H Creatinine 1.30 H Estimated Creat Clear 33 Estimated GFR 40 L Est GFR ( Amer) 48 L Glucose 143 H POC Glucose Calcium 10.7 H Total Bilirubin AST ALT Alkaline Phosphatase Total Protein Albumin Globulin Albumin/Globulin Ratio DS: Diagnosis Discharge Diagnosis (1) Renal artery stenosis: Status: Acute Code(s): I70.1 - Atherosclerosis of renal artery (2) Hypertension: Status: Acute Code(s): I10 - Essential (primary) hypertension Qualifiers: Hypertension type: renovascular hypertension Qualified Code(s): I15.0 - Renovascular hypertension (3) Hyperlipidemia: Status: Acute Code(s): E78.5 - Hyperlipidemia, unspecified Qualifiers: Hyperlipidemia type: unspecified Qualified Code(s): E78.5 - Hy perlipidemia, unspecified Meds Home Medications and Allergies Home Medications ?Medication ?Instructions ?Recorded ?Confirmed ?Type allopurinol 300 mg tablet 300 mg PO DAILY 06/28/23 05/16/24 History aspirin 81 mg tablet,delayed 81 mg PO DAILY 06/28/23 05/16/24 History release (Adult Aspirin Regimen) calcium carbonate (Calcium 600) 600 mg PO DAILY 06/28/23 05/16/24 History clonidine HCl 0.1 mg tablet 0.1 mg PO HS 06/28/23 05/16/24 History ezetimibe 10 mg tablet 10 mg PO DAILY 06/28/23 05/16/24 History fenofibrate 54 mg tablet 54 mg PO DAILY 06/28/23 05/16/24 History glimepiride 4 mg tablet 4 mg PO DAILY 06/28/23 05/16/24 History hydrochlorothiazide 25 mg tablet 25 mg PO DAILY 06/28/23 05/16/24 History lisinopril 40 mg tablet 40 mg PO DAILY 06/28/23 05/16/24 History omega 5-akp-wrc-fish oil 300 1 cap PO DAILY 06/28/23 05/16/24 History mg-1,000 mg capsule (Fish Oil) omeprazole 20 mg capsule,delayed 20 mg PO DAILY 06/28/23 05/16/24 History release montelukast 10 mg tablet 10 mg PO PM 01/02/24 05/16/24 History lidocaine 5 % topical patch 1 patch topical DAILY #15 ea 01/23/24 05/16/24 Rx (Lidoderm) magnesium oxide 400 mg (241.3 mg 400 mg PO BID #180 tabs 05/01/24 05/16/24 Rx magnesium) tablet carvedilol 6.25 mg tablet 6.25 mg PO BID 05/16/24 05/16/24 History clopidogrel 75 mg tablet (Plavix) 75 mg PO DAILY 30 days #30 tabs 05/16/24 Rx levothyroxine 50 mcg tablet 50 mcg PO DAILY 05/16/24 05/16/24 History rosuvastatin 40 mg tablet 40 mg PO HS 05/16/24 05/16/24 History spironolactone 50 mg tablet 50 mg PO DAILY 05/16/24 05/16/24 History hydralazine 25 mg tablet 50 mg (2 x 25 mg) PO BID #60 tabs 05/17/24 Rx New Prescriptions to Start Prescriptions: clopidogrel [Plavix] Gary Sosa hydralazine Joe Krishnan Allergies Allergy/AdvReac Type Severity Reaction Status Date / Time amlodipine Allergy Unknown Fainting Verified 04/30/24 10:02 Discharge Plan Disposition Patient Disposition: Home, Self-Care Condition: Good Follow up Plan Follow up with: John Villarreal [Primary Care Provider] - 05/24/24 10:00 am Gary Sosa MD [Staff Physician] - 05/30/24 2:00 pm Prescriptions/Medication Reconciliation: New clopidogrel [Plavix] 75 mg Tablet 75 mg PO DAILY 30 Days Qty: 30 6RF hydralazine 25 mg Tablet 50 mg PO BID Qty: 60 0RF Continued omeprazole 20 mg capsule,delayed release(DR/EC) 20 mg PO DAILY hydrochlorothiazide 25 mg tablet 25 mg PO DAILY lisinopril 40 mg tablet 40 mg PO DAILY allopurinol 300 mg tablet 300 mg PO DAILY omega 3-ijn-xbu-fish oil [Fish Oil] 300-1,000 mg capsule 1 cap PO DAILY aspirin [Adult Aspirin Regimen] 81 mg tablet,delayed release (DR/EC) 81 mg PO DAILY ezetimibe 10 mg tablet 10 mg PO DAILY glimepiride 4 mg tablet 4 mg PO DAILY fenofibrate 54 mg tablet 54 mg PO DAILY clonidine HCl 0.1 mg tablet 0.1 mg PO HS calcium carbonate [Calcium 600] 600 mg calcium (1,500 mg) tablet 600 mg PO DAILY montelukast 10 mg tablet 10 mg PO PM Patient Comments: TAKE ONE TABLET BY MOUTH DAILY magnesium oxide 400 mg (241.3 mg magnesium) tablet 400 mg PO BID Qty: 180 3RF lidocaine [Lidoderm] 5 % adhesive patch,medicated 1 patch topical DAILY Qty: 15 0RF Rx Instructions: leave on most painful area for up to 12 hrs levothyroxine 50 mcg tablet 50 mcg PO DAILY carvedilol 6.25 mg tablet 6.25 mg PO BID spironolactone 50 mg tablet 50 mg PO DAILY rosuvastatin 40 mg tablet 40 mg PO HS Rx Instructions: TAKE ONE TABLET BY MOUTH DAILY Discontinued hydralazine 50 mg tablet 50 mg PO BID Problem Reconciliation Problems Reviewed?: Yes Patient Discharge Instructions ACTIVITY: Continue current activity DIET: continue same diet Patient Instructions: DI for Moderate Sedation, DI for Renal Artery Stenosis Print Language: [place]ralt[place] Providers Primary Care Provider: John Villarreal Admit Provider: Joe Krishnan Attending Provider: Joe Krishnan
[2024-05-17] MEDS: hydroCHLOROthiazide 25MG TABLET 25 MG PO (09:05)
[2024-05-17] MEDS: ASPIRIN EC 81MG TABLET 81 MG PO (09:05)
[2024-05-17] MEDS: CLOPIDOGREL 75MG TAB 75 MG PO (09:05)
--- NOTE | 2024-05-20 13:08 | SW/DCPLANNER ---
Hospital discharge follow up phone call: patient's sister stated that patient is doing well at home at this time. Patient was able to pickle solution maker new medication and waiting on one mail order to come. Patient/sister are aware of follow up appointments. Patient/sister did not have any further questions/needs at this time.
== END 2024-05-17 09:22 | disposition home or self-care (01) ==
LOC: 2ND 12:30
PROVIDERS: Internal Medicine; Admitting Provider Internal Medicine; PCP Family Medicine; Visit Provider Internal Medicine
DX: R93.5 Abnormal findings on diagnostic imaging of other abdominal regions, including retroperitoneum (principal); I70.1 Atherosclerosis of renal artery; R93.429 Abnormal radiologic findings on diagnostic imaging of unspecified kidney; E78.5 Hyperlipidemia, unspecified; I15.0 Renovascular hypertension; E11.22 Type 2 diabetes mellitus with diabetic chronic kidney disease; I25.10 Atherosclerotic heart disease of native coronary artery without angina pectoris; Z79.899 Other long term (current) drug therapy; I25.810 Atherosclerosis of coronary artery bypass graft(s) without angina pectoris; N18.9 Chronic kidney disease, unspecified; I12.9 Hypertensive chronic kidney disease with stage 1 through stage 4 chronic kidney disease, or unspecified chronic kidney disease
CPT/HCPCS: 36415; 37236; 80048; 80053; 82962; 83735; 85025; 99152; 99153; C1769; C1876; C1887; C1894; G0378; J1200; J1644; J2250; J2270; J2720; J3010; Q9967